=== PATIENT | female | born 1970 | race African-American/Black ===

== ENCOUNTER 2018-11-21 00:23 | Emergency (ER) | payer OTHER ==
[~2018-11-21] VITALS: Ht 170.2 cm; Wt 120.0 kg
[2018-11-21 03:26] LABS: BASOPHILS % 0.4 % (0.0-2.0); EOSINOPHILS % 0.4 % (0.0-5.0); HEMATOCRIT. 37.4 % (36.0-48.0); LYMPHOCYTES % 34.8 % (20.0-50.0); MEAN CORPUSCULAR HEMOGLOBIN 26.6 pg (28.0-32.0); MEAN CORPUSCULAR VOLUME 82.7 fL (81.0-99.0); MEAN PLATELET VOLUME 9.9 fl (7.4-10.4); MONOCYTES % 8.4 % (2.0-8.0); PLATELET 225 x1000/uL (130-400); RED BLOOD CELL COUNT 4.52 mill/uL (4.2-5.4); RED CELL DISTRIBUTION WIDTH 17.7 % (11.6-14.6)
[2018-11-21 03:33] LABS: CHLORIDE 114 mEq/L (98-107)
[2018-11-21 03:36] LABS: ETHANOL BLOOD 153 mg/dL
[2018-11-21 03:39] LABS: HCG SCREEN NEGATIVE
[2018-11-21] MEDS ORDERED: ONDANSETRON HCL 4MG/2ML INJ IV ONE ×2 (04:00→04:15)
[2018-11-21] MEDS ORDERED: ETOMIDATE 2MG/ML 10ML VIAL IV ONE (04:00)
[2018-11-21] MEDS ORDERED: SODIUM CHLORIDE 0.9% 1,000 ML IV ONE (04:30)
[2018-11-21 07:52] VITALS: BP 138/83
== END 2018-11-21 07:56 | disposition home or self-care (01) ==
LOC: ER 00:23
DX: S92.121A Displaced fracture of body of right talus, initial encounter for closed fracture (principal); S20.01XA Contusion of right breast, initial encounter; F10.129 Alcohol abuse with intoxication, unspecified; V49.88XA Car occupant (driver) (passenger) injured in other specified transport accidents, initial encounter; Y93.89 Activity, other specified; Y92.89 Other specified places as the place of occurrence of the external cause; Y99.8 Other external cause status; Y90.6 Blood alcohol level of 120-199 mg/100 ml
CPT/HCPCS: 27840; 36415; 71045; 73610; 73630; 80053; 80320; 83690; 84703; 85025; 96361; 96374; 99152; 99285; J2405; J3490; J7030; Z7610; 99284; G0480